=== PATIENT | male | born 1980 | race Caucasian/White ===

== ENCOUNTER → 2023-12-10 07:42 | Outpatient (REF) | payer OTHER, SELFPAY | LOC: RAD 07:42 | PROVIDERS: ATTENDING PHYSICIAN Specialist; FAMILY PHYSICIAN Physician Assistant Medical | DX: I10 Essential (primary) hypertension (principal) | CPT/HCPCS: 93975 ==

== ENCOUNTER → 2024-05-30 07:57 | Day surgery (SDC) | payer OTHER, SELFPAY ==
[2024-05-30 08:41] LABS: Glucose - Point of Care 150 mg/dl (70-99)
== END ==
LOC: GI 07:57
PROVIDERS: ATTENDING PHYSICIAN Internal Medicine Gastroenterology
DX: Z12.11 Encounter for screening for malignant neoplasm of colon (principal); K64.8 Other hemorrhoids; Q43.8 Other specified congenital malformations of intestine; K63.5 Polyp of colon
CPT/HCPCS: 45380; 88305; 82962

== ENCOUNTER 2025-08-03 06:34 | Day surgery (SDC) | payer OTHER, SELFPAY ==
[2025-07-20 11:17] VITALS: BMI 30.1
[2025-08-03] VITALS (12 sets, daily range): BP systolic 134–170; BP diastolic 74–98; BMI 30.1
[2025-08-03] MEDS: HEPARIN 5000 UNITS SC (10:39)
[2025-08-03] MEDS: TYLENOL 1000 MG PO (10:39)
[2025-08-03] MEDS: NORMOSOL-R/PLASMALYTE-A 1000 IV (10:39)
--- NOTE | 2025-08-03 12:26 | OR.RPT ---
Operative Report
Operative Report
Primary Surgeon: Anmol
Assisting: Reina MATIAS
Pre-op Diagnosis: Incarcerated umbilical hernia
Post-op Diagnosis: Same
Procedure Performed: Robotic repair incarcerated umbilical hernia (rTAPP)
Anesthesia Type: GETA + TAP block
Specimen / Cultures: None
Estimated Blood Loss:5cc
Complications: None immediate
Operative Findings: 1.2cm defect, incarcerated fat, 12cm round bard soft mesh
DOS: 08/03/25
Indications:� This 46M developed an incarcerated umbilical hernia. Robot assisted laparoscopic repair was planned.
Description of procedure:� The patient was taken to the operating room and positioned into supine position. The patient�s abdomen was prepped and draped in standard sterile fashion. A time-out was completed verifying correct patient, procedure,
site, positioning, and implants and special equipment prior to beginning this procedure.� A stab incision was made in the left upper quadrant, a Veress needle was inserted and proper position was confirmed by aspiration and saline drop test.
Following this, pneumoperitoneum was created with insufflation of carbon dioxide to 12 mmHg. Then a 8mm robotic trocar was inserted at the left anterior axillary line. The laparoscope was inserted and no injuries were identified in the area. Under
direct visualization, two 8mm trocars were placed a hand's breadth inferior to the initial trocar and a hand's breadth inferior to the second trocar in succession.
Attention was turned to the defect. The peritoneum was incised several cm superior to the defect and a peritoneal flap was developed in transverse and caudad directions using blunt and sharp dissection and judicious electrocautery. The defect
measured as above. Incarcerated fat was reduced and the defect was closed with 0 PDS stratafix suture. Mesh was passed into the abdomen and centered on the defect and then placed against the underside of the abdominal wall and secured in place with
2-0 vicryl sutures at all four corners as well as under the defect. The flap was closed over the mesh and secured with 2-0 monocryl stratafix suture. A rent in the flap on the right side was repaired with 2-0 vicryl suture. A transversus abdominis
plane block was then performed under laparoscopic vision with marcaine/decadron.
After ensuring adequate hemostasis, the trocars were removed and the pneumoperitoneum allowed to escape. The trocar incisions were closed at the skin level using 4-0 monocryl and topical skin adhesive. All counts were correct. The patient tolerated
the procedure well and was taken to the postanesthesia care unit in stable condition.
The assistance of Reina MATIAS was required due to the complexity of the procedure. During the procedure she assisted with retraction, resection, and closure of the wound.
[2025-08-03] MEDS: DILAUDID 0.25 MG IV ×2 (12:38→12:58)
--- NOTE | 2025-08-03 14:25 | PTCARENOTE ---
Report given to Adilene RN at 1425.
== END 2025-08-03 14:50 | disposition home or self-care (01) ==
LOC: SDS 06:34
PROVIDERS: ATTENDING PHYSICIAN Surgery; FAMILY PHYSICIAN Physician Assistant Medical
DX: K42.0 Umbilical hernia with obstruction, without gangrene (principal)
CPT/HCPCS: 49592; 93005; C1781